=== PATIENT | female | born 1990 | race Caucasian/White ===

== ENCOUNTER 2021-02-06 07:02 | Emergency (ER) | payer OTHER, SELFPAY ==
[2021-02-06] VITALS (10 sets, daily range): BP systolic 129–147; BP diastolic 81–97; PULSE 62–87; RESP 15–19; TEMP 36.2; O2SAT 97–100
--- NOTE | ~2021-02-06 | CT_ITS ---
EXAMINATION: CT brain wo con DATE: 02/06/2021 08:05 INDICATION: Head injury. Altered mental status. TECHNIQUE: Computed tomography (CT) of the head was performed without intravenous contrast. Sagittal and coronal reconstructions were performed. The mA was adjusted according to patient size. Iterative reconstruction technique was employed. The dose-length product was 529.67 mGy-cm. COMPARISON: None FINDINGS: No fracture. No acute intracranial hemorrhage, acute infarction or abnormal extra axial fluid collect ion. Ventricles are normal and symmetric. No mass/mass effect. The orbits, paranasal sinuses and mast oid air cells are normal. IMPRESSION: 1. Normal head CT. Reviewed, dictated and finalized at location A. IMPRESSION: 1. Normal head CT.
--- NOTE | ~2021-02-06 | CT_ITS ---
EXAMINATION: CT cervical spine wo con DATE: 02/06/2021 08:05 INDICATION: Head injury TECHNIQUE: Computed tomography (CT) of the cervical spine was performed without intravenous contrast. Automated exposure control and iterative reconstruction technique were employed. The dose-length pro duct was 448.22 mGy-cm. COMPARISON: None FINDINGS: Likely positional mild reversal of the normal cervical lordosis. No spondylolisthesis or facet sublux ation. Vertebral body and disc heights are normal. No fracture. No uncovertebral or facet osteoarthri tis. Central canal and neural foramina are patent throughout. Cervical soft tissues are unremarkable. The visualized apices of the lungs are clear. IMPRESSION: 1. Normal cervical spine CT . Reviewed, dictated and finalized at location A.
--- NOTE | 2021-02-06 07:23 | ECG_ITS ---
Measurements Intervals [place] Rate: 72 P: 49 SD: 167 QRS: 26 QRSD: 99 T: 38 QT: 391 QTc: 429 Interpretive Statements SINUS RHYTHM INCOMPLETE RIGHT BUNDLE BRANCH BLOCK BORDERLINE ECG Electronically Signed On 02-06-2021 7:42:56 CDT by Timothy Rutledge D.O.
--- NOTE | 2021-02-06 07:35 | ED.GENADULT ---
HPI - General Adult General Chief complaint: Altered Mental Status Stated complaint: ams; hit on head with tote yesterday Time Seen by Provider: 02/06/21 07:08 Source: patient History of Present Illness HPI narrative: Patient is a 30 y/o female complaining of right sided headache after being struck by a plastic tote at work last night. She describes her pain as throbbing and rates it as 7/10. She took Tylenol which did not help much. She also has some neck pain. She has some nausea, but no vomiting. She appears confused at times according to her . Related Data Home Medications Medication Instructions Recorded Confirmed No Home Medications 02/06/21 Allergies Allergy/AdvReac Type Severity Reaction Status Date / Time No Known Allergies Allergy Unverified 02/06/21 07:21 Review of Systems Constitutional: Constitutional: Denies chills, Denies fever(s), Reports headache(s) and Denies weakness Eyes: Eyes: Denies blurry vision ENT: Reports headache(s) and Denies neck pain Cardiovascular: Cardiovascular: Denies chest pain and Denies dyspnea Respiratory: Respiratory: Denies cough and Denies dyspnea Gastrointestinal: Gastrointestinal: Denies abdominal pain, Denies diarrhea, Denies nausea and Denies vomiting Genitourinary: Genitourinary: Denies hematuria and Denies dysuria Musculoskeletal: Musculoskeletal: Denies back pain and Reports neck pain Neurologic: Reports headache(s) and Denies weakness [facility] Social History Social History Gender identity (if verbalized by the patient): Female Exam Const: General: no acute distress and well developed Orientation/consciousness: oriented to person, oriented to place, oriented to time and patient oriented x3 HENMT: Head: normocephalic Ears: external ears normal General nose exam: Normal external nose present Eyes: General: appearance normal, both eyes and all related structures Conjunctivae: conjunctivae normal Neck: Neck: normal visual inspection and full ROM Chest: Chest palpation & inspection: normal inspection of the chest and no tenderness Resp: Effort & Inspection: normal respiratory effort Auscultation: clear to auscultation bilaterally Cardio: Rate: regular rate Rhythm: regular rhythm GI: GI Palp: No abdominal tenderness and Yes Soft to palpation Skin: General skin exam: normal color and turgor normal Neuro: General: oriented to person, oriented to place, oriented to time and patient oriented x3 Cranial nerves: Yes CN's II-XII intact bilaterally Cognition (Neuro): normal cognition Speech: normal speech Motor exam (neuro): 5/5 motor strength present throughout Sensory Exam: normal sensation Coordination: [id number] test normal and [id number]-[id number] test normal Other: GCS 15 Extrem: General: normal to inspection, full ROM and no pedal edema Psych: Appearance: grossly normal Mental Status: mental status grossly normal Affect: normal affect Course Vital Signs Vital signs: Vital Signs Pulse Rate 79 02/06/21 07:16 Respiratory Rate 19 02/06/21 07:16 Pulse Oximetry 98 02/06/21 07:16 Temperature 36.2 C L 02/06/21 07:17 Pulse Rate 64 02/06/21 09:33 Respiratory Rate 18 02/06/21 09:33 Blood Pressure 137/95 H 02/06/21 09:33 Pulse Oximetry 99 02/06/21 09:33 Medical Decision Making Vital Signs Vital Signs: Vital Signs Pulse Rate 79 02/06/21 07:16 Respiratory Rate 19 02/06/21 07:16 Pulse Oximetry 98 02/06/21 07:16 Temperature 36.2 C L 02/06/21 07:17 Pulse Rate 64 02/06/21 09:33 Respiratory Rate 18 02/06/21 09:33 Blood Pressure 137/95 H 02/06/21 09:33 Pulse Oximetry 99 02/06/21 09:33 Lab Data Result diagrams: 02/06/21 07:34 02/06/21 07:34 Labs: Lab Results 02/06/21 02/06/21 02/06/21 Range/Units 07:34 07:34 08:36 WBC 8.5 (4.5-10.0) K/mm3 RBC 4.27 (4.2-5.4) M/mm3 Hgb 13.9 (
[2021-02-06 07:42] LABS: Basophils Absolute Auto 0.1 K/mm3 (0.0-0.1); Basophils Percent Auto 0.6 % (0.2-1.2); Eosinophils Absolute Auto 0.3 K/mm3 (0-0.3); Eosinophils Percent Auto 3.9 % (0-4.4); Hematocrit 38.9 % (37.0-47.0); Hemoglobin 13.9 g/dL (12.0-15.0); Immature Granulocyte Absolute 0.01 K/mm3 (0.00-0.031); Immature Granulocyte Percent A 0.1 % (0-0.5); Lymphocytes Absolute Auto 3.22 K/mm3 (0.9-3.2); Mean Corpuscular HGB Conc 35.7 g/dl (32-36); Mean Corpuscular Hemoglobin 32.6 pg (26-34); Mean Corpuscular Volume 91.1 fl (80-100); Mean Platelet Volume 9.9 fl (7.4-10.4); Monocytes Absolute Auto 0.5 K/mm3 (0.1-0.6); Monocytes Percent Auto 5.9 % (2.6-8.5); Neutrophils Absolute Auto 4.4 K/mm3 (1.3-6.7); Neutrophils Percent Auto 51.5 % (45.5-73.1); Platelet Count Result 236 k/mm3 (150-375); Red Blood Count 4.27 M/mm3 (4.2-5.4); Red Cell Distribution Width 12.1 % (11.5-14.5); White Blood Count 8.5 K/mm3 (4.5-10.0)
[2021-02-06 08:02] LABS: Alanine Aminotransferase 20 U/L (4-35); Albumin Level 3.9 g/dL (3.5-5.1); Alkaline Phosphatase 66 U/L (38-126); Anion Gap 5 mmol/L (8-16); Aspartate Amino Transferase 28 U/L (14-36); Bilirubin,Total 0.5 mg/dL (0.2-1.3); Blood Urea Nitrogen 16 mg/dL (7-17); Carbon Dioxide 25 mmol/L (22-30); Chloride 107 mmol/L (98-107); Estimated CRCL calculation 112 ml/min; Estimated Glomerular Filt Rate > 60; Glucose 99 mg/dL (65-105); Potassium 3.9 mmol/L (3.4-5.0); Sodium 137 mmol/L (137-145)
[2021-02-06 08:51] LABS: Add Urine Microscopic? YES; Appearance Urine Clear (Clear); Bilirubin Urine Negative (Negative); Blood Urine Negative (Negative); Color Urine Yellow (Yellow); Glucose Urine UA Negative (Negative); Ketones Urine Negative (Negative); Leukocyte Esterase Ur Negative LEU/UL (Negative); Mucus Urine Rare /lpf; Nitrate Urine Negative (Negative); Protein Urine 1+ mg/dL (Negative); RBC Urine 0-2 /hpf (0-2); Specific Grav Ur 1.028 (1.001-1.035); Squamous Epithelial Cell Urine Occasional /hpf (Few); Urobilinogen Urine Negative mg/dL (<2.0); WBC Urine 0-3 /hpf
--- NOTE | 2021-02-06 09:14 | PC.NURSE ---
Dr. Grover at bedside to discuss results with pt.
== END 2021-02-06 09:44 | disposition home or self-care (01) ==
PROVIDERS: Emergency Provider Emergency Medicine; PCP Obstetrics & Gynecology Gynecology
DX: S06.0X0A Concussion without loss of consciousness, initial encounter (principal); W22.8XXA Striking against or struck by other objects, initial encounter
CPT/HCPCS: 36415; 70450; 72125; 80053; 81001; 81025; 85025; 93005; 99284

== ENCOUNTER 2021-02-12 10:42 | Outpatient (CLI) | payer OTHER, SELFPAY ==
--- NOTE | ~2021-02-12 | US_ITS ---
EXAMINATION: US pelvic complete w TV DATE: 02/12/2021 11:18 INDICATION: Abnormal uterine bleeding TECHNIQUE: Multiple transabdominal and endovaginal sonographic images of the pelvis were obtained. COMPARISON: None. FINDINGS: The uterus measures 9.1 x 6.3 x 3.7 cm. The endometrial complex measures 6 mm. The right ov rajesh measures 2.7 x 2.4 x 3.1 cm. The left ovary measures 2.9 x 3.2 x 2.8 cm. There is normal vascular flow in the ovaries. There is no free fluid in the pelvis. IMPRESSION: 1. No sonographic correlate for the patient's symptoms. Reviewed, dictated and finalized at location A.
== END 2021-02-12 10:43 | disposition home or self-care (01) ==
LOC: ANHIMG 10:45
PROVIDERS: PCP Obstetrics & Gynecology Gynecology; Visit Provider Nurse Practitioner
DX: N93.8 Other specified abnormal uterine and vaginal bleeding (principal)
CPT/HCPCS: 76830; 76856

== ENCOUNTER 2021-02-13 11:08 | Emergency (ER) | payer OTHER, SELFPAY ==
[2021-02-13 11:14] VITALS: BP 133/87; PULSE 84; RESP 20; TEMP 36.2; O2SAT 100
--- NOTE | 2021-02-13 11:35 | ED.DENTAL ---
HPI - Dental/Oral General Chief complaint: Dental/Oral Stated complaint: tooth pain Time Seen by Provider: 02/13/21 11:24 Source: patient Mode of arrival: ambulatory Limitations: no limitations History of Present Illness HPI Narrative: This is a 30-year-old female that presents the emergency department for toothache x3 days. Reports it is intermittently been bothering her over the last month. It worsened a couple of days ago. She has not seen a dentist for this yet. Denies fever or swelling. MD Complaint: tooth pain Location: Tooth # (16) Related Data Allergies Allergy/AdvReac Type Severity Reaction Status Date / Time No Known Allergies Allergy Verified 02/13/21 11:16 Review of Systems Review of Systems: Narrative: CONSTITUTIONAL: Denies fever ENT: Reports dentalgia All systems reviewed & are unremarkable except as noted in HPI and below PMFSH Past Medical History Medical History (Updated 02/13/21 @ 11:39 by Rakel Peña PA-C) No active medical problems Social History Social History (Updated 02/13/21 @ 11:36 by Rakel Peña PA-C) Substance use: never Gender identity (if verbalized by the patient): Female Exam Narrative: Exam Narrative: GENERAL: Well-appearing, well-nourished, and in no acute distress. HEAD: Normocephalic, atraumatic. EYES: EOMI. ENT: Mucous membranes moist. Oropharynx without tonsillar hypertrophy exudate or other lesions. Tooth #16 tender to palpation. No surrounding erythema or edema to suggest abscess. No facial swelling or erythema NECK: Supple. No adenopathy or masses. CHEST: Clear to auscultation. No respiratory distress. No wheezes rales or rhonchi HEART: Regular rate and rhythm. No murmur heard. Normal peripheral pulses. EXTREMITIES: Normal range of motion. No edema. SKIN: Warm, dry, no rash. NEURO: No focal deficits. Alert and oriented x3. PSYCH: Normal mood and affect Course Vital Signs Vital signs: Vital Signs Temperature 97.2 F L 02/13/21 11:14 Pulse Rate 84 02/13/21 11:14 Respiratory Rate 20 02/13/21 11:14 Blood Pressure 133/87 02/13/21 11:14 Pulse Oximetry 100 02/13/21 11:14 Temperature 97.2 F L 02/13/21 11:14 Pulse Rate 84 02/13/21 11:14 Respiratory Rate 20 02/13/21 11:14 Blood Pressure 133/87 02/13/21 11:14 Pulse Oximetry 100 02/13/21 11:14 MDM - Dental/Oral MDM Narrative Medical decision making narrative: Patient presents the emergency department for toothache x 3 days. She is afebrile and nontoxic-appearing. No surrounding erythema or edema of the tooth to suggest an abscess. She will be started on oral antibiotics and was instructed to follow-up with a dentist. She was given warnings to return to the Critical Care Time Critical Care Time Critical Care Time: No Discharge Plan Discharge Clinical Impression: Toothache Patient Disposition: Home, Self-Care Condition: Stable Instructions: Antibiotic Form, Toothache (ED) Additional Instructions: Return to the Emergency Department if you experience fever >101, increasing swelling and redness of your tooth, or any other symptoms that are concerning to you Take antibiotic as prescribed. Tylenol or Ibuprofen as needed for pain. You can apply a dab of clove oil to a Qtip and apply to the tooth to help numb the area Follow up with a dentist. Dr. Sam Rodrigez at [facility] Prescriptions: New amoxicillin-pot clavulanate 875-125 mg tablet 1 tablet PO Q12H 10 Days Qty: 20 RF: 0 Follow-up/Referrals: Venus Miramontes MD [Primary Care Provider] -
[2021-02-13] MEDS: AMOXICILLIN/CLAVULANATE K 875-125 MG TAB 1 TABLET PO (11:48)
[2021-02-13 11:53] VITALS: BP 128/67; PULSE 60; RESP 12; O2SAT 99
== END 2021-02-13 11:53 | disposition home or self-care (01) ==
LOC: ANHED 11:47
PROVIDERS: Emergency Provider Emergency Medicine; PCP Obstetrics & Gynecology Gynecology
DX: K08.89 Other specified disorders of teeth and supporting structures (principal)
CPT/HCPCS: 99283; A9270

== ENCOUNTER → 2021-07-15 04:05 | Outpatient (CLI) | payer OTHER, SELFPAY ==
[2021-07-15 18:23] LABS: SARS-CoV-2 RNA PCR Negative
== END ==
PROVIDERS: Visit Provider Obstetrics & Gynecology Gynecology
DX: Z01.812 Encounter for preprocedural laboratory examination (principal); Z20.822 Contact with and (suspected) exposure to COVID-19
CPT/HCPCS: C9803; U0003; U0005

== ENCOUNTER 2021-07-18 00:38 | Day surgery (SDC) | payer OTHER, SELFPAY ==
[2021-07-13 10:33] VITALS: BMI 29.5
--- NOTE | 2021-07-18 07:33 | WPDHPUPDATE1 ---
History and Physical Update Update Date/Time: 07/18/21 07:33 History and Physical has been reviewed, including an updated exam of the patient. There are NO changes in the patient's condition. Risks, benefits, and alternatives have been discussed and questions answered. Patient agrees to proceed with procedure.
--- NOTE | 2021-07-18 07:33 | PM.HPGS ---
History of Present Illness History of Present Illness Consent: Risks, benefits, and alternatives have been discussed and questions answered. Patient agrees to proceed with procedure. Chief complaint: abn uterine bleeding Narrative: Julianna Sifuentes is a 31 year old female with prolonged cycles since coming off of Depo-Provera in 02/04. The patient cycles are approximately monthly however they last for 2 weeks. Flow is moderate. Pelvic ultrasound is normal. It was recommended to further address with hysteroscopy D&C. Risks of infection, bleeding, and perforation were reviewed. Possible pathology is discussed. The patient voices understanding and agrees to proceed. Review of Systems Constitutional: Constitutional: Reports night sweats (Andhot flashes) Musculoskeletal: Musculoskeletal: Reports back pain Psychiatric: Psychiatric: Reports anxiety and Reports depression [facility] Past Medical History Medical History (Updated 07/18/21 @ 07:47 by Venus Miramontes MD) Anxiety Asthma Depression Eating disorder (normal spontaneous vaginal delivery) preeclampsia PTSD (post-traumatic stress disorder) Social History Social History (Updated 02/13/21 @ 11:36 by Rakel Peña PA-C) Smoking status: Former smoker Additional smoking assessment comments: QUIT SMOKING IN 2017 Substance use: never Living arrangements: with family Gender identity (if verbalized by the patient): Female Sexual Orientation (if Verbalized by the Patient): Straight or Heterosexual Spiritual care concerns: No Meds Home Medications and Allergies Home Medications Medication Instructions Recorded Confirmed Type No Home Medications 07/13/21 07/13/21 History Allergies Allergy/AdvReac Type Severity Reaction Status Date / Time No Known Allergies Allergy Verified 07/13/21 10:19 Exam Const: General: no acute distress : External Female Exam: normal external appearance Speculum Exam - Vagina: normal appearance of the vagina Speculum Exam - Cervix: normal appearance of the cervix Bimanual exam- vagina & uterus: normal bimanual exam Bimanual Exam- Adnexa, other: normal adnexae Assessment and Plan Assessment and plan (1) Menorrhagia: Code(s): N92.0 - Excessive and frequent menstruation with regular cycle Status: Acute Assessment and Plan: Plan to proceed with D&C hysteroscopy
[2021-07-18 08:45] VITALS: BP 134/80; PULSE 62; RESP 16; TEMP 36.5; O2SAT 99
[2021-07-18] MEDS: LACTATED RINGERS 1,000 ML 30 ML IV CONT (08:45)
[2021-07-18] MEDS: ACETAMINOPHEN 500 MG TABLET 1000 MG PO (08:45)
--- NOTE | 2021-07-18 09:01 | WPDANESEPPF ---
Anes - Initial Pre Proc Eval Procedure: Operation Date: 07/18/21 10:30 Proposed Procedures p Hysteroscopy, Dilation and Curettage - Venus Miramontes MD Date/Time: 07/18/21 09:01 Surgeon: Venus Miramontes MD Pre Op Diagnosis: abn uterine bleeding Patient Data Age: 31 Gender: F Height: 1.65 m Weight: 80.3 kg Allergies Allergy/AdvReac Type Severity Reaction Status Date / Time No Known Allergies Allergy Verified 07/18/21 08:54 Home Medications Medication Instructions Recorded Confirmed Type No Home Medications 07/13/21 07/18/21 History Patient hx anesthesia problems: none Family hx anesthesia problems: none PMFSH Past Medical History Medical History Anxiety Asthma Depression Eating disorder (normal spontaneous vaginal delivery) preeclampsia PTSD (post-traumatic stress disorder) Social History Social History Smoking status: Former smoker Additional smoking assessment comments: QUIT SMOKING IN 2016 Substance use: never Living arrangements: with family Gender identity (if verbalized by the patient): Female Sexual Orientation (if Verbalized by the Patient): Straight or Heterosexual Spiritual care concerns: No Anes - Eval Final PreProcedure Day of Procedure 07/18/21 09:01 Patient weight: overweight Heart: regular rate and rhythm Lungs: clear to auscultation Airway: Mallampati scale class II Neurological: alert and oriented Last oral intake: >/= 8 hours ASA classification: III Emergent: no Anesthetic plan: proceed Anesthesia type and monitoring: general GIVS and standard monitoring Informed Consent: The patient's anesthetic plan and its attendant risks and benefits were discussed with the patient/family/POA. Questions were solicited and answers provided to the satisfaction of the patient/family/POA.
--- NOTE | 2021-07-18 09:39 | W.PM.PROC2 ---
Procedure Note - Detailed Date of Procedure 07/18/21 Pre-op Diagnosis abn uterine bleeding Post-op Diagnosis same Procedure Performed D&C hysteroscopy Surgeon Venus Miramontes MD Anesthesia MAC and local Findings Uterus sounds to 8cm appears grossly secretory Description of Procedure The patient was taken to the operating room and placed under anesthesia in the dorsal lithotomy position. She was prepped and draped in the usual sterile fashion. The bivalve speculum was placed in the vagina and the cervix grasped on the anterior lip with a tenaculum. The cervix is serially injected with 1% lidocaine in each quadrant. The uterus is sounded to 8cm. The cervix is serially dilated with Hegar. The diagnostic hysteroscope was placed. The hysteroscope was removed and the medium sharp curette used to sharply curette the endometrium until a good uterine cry was noted in all areas. All instruments are removed. Sponge, needle, and instrument counts are correct per the OR staff. Patient is awakened from anesthesia and taken to recovery in stable condition. Estimated Blood Loss 5 Drains No Packing No Pathology yes (Endometrial curettings) Complications No immediate complications Condition stable Disposition PACU
[2021-07-18 09:44] VITALS: BP 113/65; PULSE 64; RESP 14; O2SAT 95
[2021-07-18 10:14] VITALS: BP 112/73; PULSE 61; RESP 14; O2SAT 96
[2021-07-18 10:25] VITALS: BP 133/79; PULSE 66; RESP 14; O2SAT 98
== END 2021-07-18 10:35 | disposition home or self-care (01) ==
PROVIDERS: Visit Provider Obstetrics & Gynecology Gynecology
PROC: 0U5B8ZZ Destruction of Endometrium, Via Natural or Artificial Opening Endoscopic (ICD-10-PCS; CPT 58563; principal; 2021-07-18 10:30)
DX: N93.9 Abnormal uterine and vaginal bleeding, unspecified (principal); F41.8 Other specified anxiety disorders; J45.909 Unspecified asthma, uncomplicated; F43.10 Post-traumatic stress disorder, unspecified; Z87.891 Personal history of nicotine dependence
CPT/HCPCS: 58558; 88305; A9270; J2250; J2704; J3010; J7030; J7120

== ENCOUNTER 2021-10-03 18:06 | Emergency (ER) | payer OTHER, SELFPAY ==
[2021-10-03 18:22] VITALS: BP 124/82; PULSE 81; RESP 16; TEMP 36.7; O2SAT 100
--- NOTE | 2021-10-03 19:43 | ED.URI ---
HPI - URI/Sore Throat General Chief Complaint: Upper Respiratory Infection Stated Complaint: Congestion,Work note Time Seen by Provider: 10/03/21 19:45 Source: patient, RN notes reviewed and old records reviewed Mode of arrival: ambulatory Limitations: no limitations History of Present Illness HPI Narrative: 31 year old female who presents to [facility] care with complaints of 2-3 days of cold symptoms then proceeded to stomach flu symptoms such as headache,diarrhea, stomach pain, and muscle aching. Patient states that symptoms have resolved except for minor cough with some phlegm and a stuffy nose..Patient reports no fever, chills or sweats for past 24 hours and she states that she needs a note to go back to work. Patient states that she has been taking OTC cold medication. MD elicited complaint: cough Related Data Home Medications Medication Instructions Recorded Confirmed norethindrone-e.estradiol-iron 1 tablet PO DAILY 10/03/21 10/03/21 [Aurovela 24 Fe] Allergies Allergy/AdvReac Type Severity Reaction Status Date / Time No Known Allergies Allergy Verified 10/03/21 18:47 Review of Systems Review of Systems: CONSTITUTIONAL: Denies fever, chills, or sweats. EYES: Denies visual changes, redness, or discharge. ENT: Positive rhinorrhea, congestion,no sore throat, or otalgia. CARDIOVASCULAR: Denies chest pain, palpitations, or edema. RESPIRATORY: occasional cough denies dyspnea. GASTROINTESTINAL: Denies abdominal pain, nausea, vomiting, or diarrhea presently, reports that symptoms have resolved GENITOURINARY: Denies dysuria or hematuria. SKIN: Denies rash or itching. MUSCULOSKELETAL: Denies back pain, joint pain, or myalgia. NEUROLOGIC: Denies headache, numbness, or weakness. PSYCHIATRIC: Positive for history of anxiety or depression. All systems reviewed & are unremarkable except as noted in HPI and below PMFSH Past Medical History Medical History (Updated 10/07/21 @ 08:20 by Stephanie Pascal NP) Anxiety Asthma Depression Eating disorder (normal spontaneous vaginal delivery) preeclampsia PTSD (post-traumatic stress disorder) Surgical History Surgical History (Updated 10/07/21 @ 08:20 by Stephanie Pascal NP) No history of previous surgery Family History Family History (Updated 10/07/21 @ 08:21 by Stephanie Pascal NP) Mother Family history of blood clots Sibling Family history of blood clots Social History Social History Smoking status: Former smoker Additional smoking assessment comments: QUIT SMOKING IN 2017 Substance use: never Gender identity (if verbalized by the patient): Female Sexual Orientation (if Verbalized by the Patient): Straight or Heterosexual Spiritual care concerns: No Comments At time of signature, agree with nursing past medical, surgical, social and family history. There is no relevant family history pertinent to the presenting complaint Exam Narrative: GENERAL: Well-appearing, well-nourished, and in no acute distress. HEAD: Normocephalic, atraumatic. EYES: PERRLA and EOMI. ENT: Nares red with clear rhinorrhea no epistaxis. Mucous membranes moist.TM's normal with good light reflex, throat pink with no lesions or exudates, tonsils not enlarged. NECK: Supple.no lymphadenopathy CHEST: Clear to auscultation. No respiratory distress.SAO2 100% on room air HEART: Regular rate and rhythm. No murmur heard. Normal peripheral pulses. ABDOMEN: Soft, nontender to palpation, nondistended, normal active bowel sounds.. denies any diarrhea or nausea for over 24 hours EXTREMITIES: Normal range of motion. No edema. SKIN: Warm, dry, no rash. NEURO: No focal deficits. Alert and oriented x3. Course Vital Signs Vital signs: Vital Signs Temperature 36.7 C 10/03/21 18:22 Pulse Rate 81 10/03/21 18:22 Respiratory Rate 16 10/03/21 18:22 Blood Pressure 124/82 10/03/21 18:22 Pulse Oximetry 100 10/03/21 18:2
--- NOTE | 2021-10-03 20:08 | ED.URI ---
HPI - URI/Sore Throat General Chief Complaint: Upper Respiratory Infection Stated Complaint: Congestion,Work note Time Seen by Provider: 10/03/21 19:45 Source: patient, RN notes reviewed and old records reviewed Mode of arrival: ambulatory Limitations: no limitations Related Data Home Medications Medication Instructions Recorded Confirmed norethindrone-e.estradiol-iron 1 tablet PO DAILY 10/03/21 10/03/21 [Aurovela 24 Fe] Allergies Allergy/AdvReac Type Severity Reaction Status Date / Time No Known Allergies Allergy Verified 10/03/21 18:47 Review of Systems Review of Systems: CONSTITUTIONAL: Denies fever, chills, or sweats. EYES: Denies visual changes, redness, or discharge. ENT: Denies rhinorrhea, congestion, sore throat, or otalgia. CARDIOVASCULAR: Denies chest pain, palpitations, or edema. RESPIRATORY: Denies cough or dyspnea. GASTROINTESTINAL: Denies abdominal pain, nausea, vomiting, or diarrhea. GENITOURINARY: Denies dysuria or hematuria. SKIN: Denies rash or itching. MUSCULOSKELETAL: Denies back pain, joint pain, or myalgia. NEUROLOGIC: Denies headache, numbness, or weakness. PSYCHIATRIC: Denies anxiety or depression. All systems reviewed & are unremarkable except as noted in HPI and below PMFSH Past Medical History Medical History Anxiety Asthma Depression Eating disorder (normal spontaneous vaginal delivery) preeclampsia PTSD (post-traumatic stress disorder) Social History Social History Smoking status: Former smoker Additional smoking assessment comments: QUIT SMOKING IN 2017 Substance use: never Gender identity (if verbalized by the patient): Female Sexual Orientation (if Verbalized by the Patient): Straight or Heterosexual Spiritual care concerns: No Comments At time of signature, agree with nursing past medical, surgical, social and family history. There is no relevant family history pertinent to the presenting complaint Exam Narrative: GENERAL: Well-appearing, well-nourished, and in no acute distress. HEAD: Normocephalic, atraumatic. EYES: PERRLA and EOMI. ENT: Nares clear, no rhinorrhea or epistaxis. Mucous membranes moist. NECK: Supple. CHEST: Clear to auscultation. No respiratory distress. HEART: Regular rate and rhythm. No murmur heard. Normal peripheral pulses. ABDOMEN: Soft, nontender, nondistended, normal active bowel sounds. EXTREMITIES: Normal range of motion. No edema. SKIN: Warm, dry, no rash. NEURO: No focal deficits. Alert and oriented x3. Course Vital Signs Vital signs: Vital Signs Temperature 36.7 C 10/03/21 18:22 Pulse Rate 81 10/03/21 18:22 Respiratory Rate 16 10/03/21 18:22 Blood Pressure 124/82 10/03/21 18:22 Pulse Oximetry 100 10/03/21 18:22 Temperature 36.7 C 10/03/21 18:22 Pulse Rate 81 10/03/21 18:22 Respiratory Rate 16 10/03/21 18:22 Blood Pressure 124/82 10/03/21 18:22 Pulse Oximetry 100 10/03/21 18:22 MDM - URI/Sore Throat Differential Diagnosis Differential diagnosis: Likely upper respiratory infection Medical Records Attestation: I reviewed the patient's medical records. Lab Data Attestation: I reviewed the patient's lab results. Lab results narrative: Covid antigen negative Critical Care Time Critical Care Time Critical Care Time: No Discharge Plan Discharge Patient Disposition: Home, Self-Care Condition: Stable Instructions: Antibiotic Form, Gastritis (ED), Upper Respiratory Infection (ED) Additional Instructions: Increase fluids especially juices and water Apkr-omf-[id number] cough and cold medicine of your choice for your symptoms Prescription cough medicine as directed--caution drowsiness and no driving or alcohol Zyrtec or Claritin while having symptoms Tylenol or ibuprofen for any fever pain heat to the face 20-30 minutes 4-6 times a day for pain Salt water gargle
== END 2021-10-03 20:20 | disposition home or self-care (01) ==
PROVIDERS: Emergency Provider Registered Nurse
DX: J06.9 Acute upper respiratory infection, unspecified (principal); Z20.822 Contact with and (suspected) exposure to COVID-19; J45.909 Unspecified asthma, uncomplicated; F43.10 Post-traumatic stress disorder, unspecified
CPT/HCPCS: 87426; 99213; C9803; G0463

== ENCOUNTER 2023-07-29 15:01 | Emergency (ER) | payer OTHER, SELFPAY ==
--- NOTE | ~2023-07-29 | XR_ITS ---
EXAMINATION: XR chest 1V portable Exam Date/Time: 07/29/2023 15:20 CDT HISTORY: cough X 1 MONTH Comparison: 09/08/2017. RESULT: Lines, tubes, and devices: None. Lungs and pleura: Segmental right lower lung airspace disease. Cardiomediastinal silhouette: Stable. Other: No acute osseous or upper abdominal finding. IMPRESSION: Segmental right lower lung airspace disease, may represent pneumonia in the proper clinical context. Recommend radiographic follow-up to ensure resolution. Reviewed, dictated and finalized at location K. IMPRESSION: Segmental right lower lung airspace disease, may represent pneumonia in the pro per clinical context. Recommend radiographic follow-up to ensure resolution.
[2023-07-29 15:11] VITALS: BP 152/86; PULSE 100; RESP 16; TEMP 36.8; O2SAT 97
[2023-07-29 16:07] LABS: Influenza A QL RT-PCR Negative (Negative); Influenza B QL RT-PCR Negative (Negative); SARS-CoV-2 RNA PCR Negative (Negative)
--- NOTE | 2023-07-29 17:46 | ED.GENADULT ---
HPI - General Adult General Chief complaint: Upper Respiratory Infection Stated complaint: cough for a month Time Seen by Provider: 07/29/23 17:01 Source: patient Mode of arrival: ambulatory Limitations: no limitations History of Present Illness HPI narrative: This is a 33-year-old female who presents to the ED with chief complaint of 1 month of a productive cough. Reports she first started feeling like she was having a virus at initial onset but states the cough has remained. Reports that she is still coughing up green mucus. Reports occasional pain in the chest and back associated with the cough. Endorses subjective fevers along with chills. Reports posttussive emesis at times. Denies abdominal pain, diarrhea. Related Data Allergies Allergy/AdvReac Type Severity Reaction Status Date / Time No Known Allergies Allergy Verified 07/29/23 15:13 Review of Systems Review of Systems: All systems as dictated in [facility] Past Medical History Medical History (Updated 07/30/23 @ 00:00 by Urvashi Elliott) Anxiety Asthma Depression Eating disorder (normal spontaneous vaginal delivery) preeclampsia PTSD (post-traumatic stress disorder) Surgical History Surgical History (Updated 10/07/21 @ 08:20 by Stephanie Pascal NP) No history of previous surgery Family History Family History (Updated 10/07/21 @ 08:21 by Stephanie Pascal NP) Mother Family history of blood clots Sibling Family history of blood clots Social History Social History Smoking status: Former smoker Additional smoking assessment comments: QUIT SMOKING IN 2017 Substance use: never Living arrangements: with family Gender identity (if verbalized by the patient): Female Sexual Orientation (if Verbalized by the Patient): Straight or Heterosexual Spiritual care concerns: No Exam Narrative: GENERAL: Well-appearing, well-nourished, and in no acute distress. HEAD: Normocephalic, atraumatic. EYES: PERRLA and EOMI. ENT: Nares clear, no rhinorrhea or epistaxis. Mucous membranes moist. Oropharynx without tonsillar hypertrophy exudate or other lesions. NECK: Supple. No adenopathy or masses. CHEST: No respiratory distress. Crackles in the right lower lung.. Satting 97% on room air. Respirations even and nonlabored. HEART: Regular rate and rhythm. No murmur heard. Normal peripheral pulses. ABDOMEN: Soft, nontender, nondistended, normal active bowel sounds. MSK: Normal range of motion. No edema. SKIN: Warm, dry, no rash. NEURO: Alert and oriented x3. No focal deficits. PSYCH: Normal mood and affect. Course Vital Signs Vital signs: Vital Signs Temperature 98.2 F 07/29/23 15:11 Pulse Rate 100 07/29/23 15:11 Respiratory Rate 16 07/29/23 15:11 Blood Pressure 152/86 H 07/29/23 15:11 Pulse Oximetry 97 07/29/23 15:11 Temperature 98.3 F 07/29/23 18:05 Pulse Rate 103 H 07/29/23 18:05 Respiratory Rate 20 07/29/23 18:05 Blood Pressure 144/91 H 07/29/23 18:05 Pulse Oximetry 98 07/29/23 18:05 Oxygen Delivery Room Air 07/29/23 15:53 Medical Decision Making MDM Narrative Medical decision making narrative: This is a 33-year-old otherwise healthy female who is presenting to the ED for chief complaint of cough, congestion ongoing for the past 1 month. Vitals are normal. Exam reveals right lower lobe crackles. COVID, flu test are negative. Chest x-ray shows Segmental right lower lung airspace disease, may represent pneumonia in the proper clinical context. Recommend radiographic follow-up to ensure resolution. Symptoms most consistent with walking pneumonia. She has good vital signs and is saturating well on room air. No fevers. She will be discharged in stable condition with prescriptions for Augmentin and doxycycline. Pt will be discharged in stable condition. Return precautions given and supportive measures discussed. P
[2023-07-29 18:05] VITALS: BP 144/91; PULSE 103; RESP 20; TEMP 36.8; O2SAT 98
== END 2023-07-29 18:09 | disposition home or self-care (01) ==
PROVIDERS: Emergency Medicine; Emergency Provider Physician Assistant
DX: J18.9 Pneumonia, unspecified organism (principal); Z20.822 Contact with and (suspected) exposure to COVID-19; F41.9 Anxiety disorder, unspecified; J45.909 Unspecified asthma, uncomplicated; F32.A Depression, unspecified
CPT/HCPCS: 71045; 87636; 99283

== ENCOUNTER 2023-09-03 10:17 | Outpatient (CLI) | payer OTHER, SELFPAY ==
[2023-09-03 10:46] LABS: Hemoglobin 13.5 g/dL (12.0-15.0); Mean Corpuscular HGB Conc 33.8 g/dl (32-36); Mean Platelet Volume 9.9 fl (7.4-10.4); Platelet Count Result 248 k/mm3 (150-375); Red Blood Count 4.35 M/mm3 (4.2-5.4)
[2023-09-03 11:06] LABS: Alanine Aminotransferase 26 U/L (6-35); Albumin Level 4.1 g/dL (3.5-5.1); Alkaline Phosphatase 63 U/L (38-126); Anion Gap 8 mmol/L (8-16); Aspartate Amino Transferase 26 U/L (14-36); Bilirubin,Total 0.6 mg/dL (0.2-1.3); Blood Urea Nitrogen 10 mg/dL (7-17); Calcium 9.2 mg/dL (8.4-10.2); Carbon Dioxide 25 mmol/L (22-30); Chloride 104 mmol/L (98-107); Cholesterol 213 mg/dL (0-200); Estimated Glomerular Filt Rate > 60; Glucose 93 mg/dL (65-110); HDL Direct 36 mg/dL; Potassium 3.9 mmol/L (3.4-5.0); Sodium 137 mmol/L (137-145); Triglycerides 168 mg/dL (<150)
[2023-09-03 11:14] LABS: Hemoglobin A1C 4.8 % (<5.7)
[2023-09-03 11:17] LABS: LDL Cholesterol Direct 136 mg/dL
[2023-09-03 11:27] LABS: Creatinine Urine 64.5 mg/dL
[2023-09-03 11:36] LABS: Free T4 Free Thyroxine 0.78 ng/mL (0.78-2.19); Vitamin D 25 Hydroxy 17.5 ng/mL
[2023-09-03 11:45] LABS: Microalbumin Urine Random < 6.0 mg/L (0-16.7)
[2023-09-03 11:46] LABS: MALB Creatinine Ratio < 9.3 mg/g (0-30)
== END 2023-09-03 10:18 | disposition home or self-care (01) ==
LOC: ANHLAB 10:20
PROVIDERS: PCP Emergency Medicine; Visit Provider Emergency Medicine
DX: Z00.00 Encounter for general adult medical examination without abnormal findings (principal); R53.83 Other fatigue
CPT/HCPCS: 36415; 80053; 80061; 82043; 82306; 83036; 84439; 84443; 85027

== ENCOUNTER 2023-09-04 10:14 | Outpatient (CLI) | payer OTHER, SELFPAY ==
--- NOTE | ~2023-09-04 | XR_ITS ---
XR chest 2V DATE: 09/04/2023 10:44 INDICATION: Pneumonia TECHNIQUE: PA and lateral views COMPARISON: 07/29/2023 portable AP chest FINDINGS: There is diminished infiltrate in the right lower lung since 07/29/2023. The remaining lung landers are clear. No pleural effusion or pulmonary vascular congestion or pneumothorax. Normal heart size. No hilar or mediastinal enlargement. IMPRESSION: Diminished but incompletely resolved right lower lung infiltrate since 07/29/2023 Reviewed, dictated and finalized at location L. IMPRESSION: Diminished but incompletely resolved right lower lung infiltrate si nce 07/29/2023
== END 2023-09-04 10:15 | disposition home or self-care (01) ==
PROVIDERS: PCP Emergency Medicine; Visit Provider Emergency Medicine
DX: J18.9 Pneumonia, unspecified organism (principal)
CPT/HCPCS: 71046